=== PATIENT | male | born 1960 | race Caucasian/White ===

== ENCOUNTER → 2017-06-07 | Outpatient (CLI) | payer OTHER, BC ==
[2017-06-07 11:19] LABS: MEAN CORPUSCULAR HEMOGLOBIN 33.3 pg (27.0-33.0); MEAN CORPUSCULAR HGB CONC 35.1 g/dl (32.0-36.5); MEAN CORPUSCULAR VOLUME 94.8 fl (80.0-96.0); PLATELET COUNT, AUTOMATED 192 10^3/uL (150-450); RED CELL DISTRIBUTION WIDTH 12.7 % (11.5-14.5); WHITE BLOOD COUNT 8.3 10^3/uL (4.0-10.0)
[2017-06-07 11:28] LABS: INR 1.04
[2017-06-07 11:53] LABS: ALBUMIN 3.9 GM/DL (3.2-5.2); ALBUMIN/GLOBULIN RATIO 1.03 (1.00-1.93); ALKALINE PHOSPHATASE 82 U/L (45-117); ALT/SGPT 56 U/L (12-78); ANION GAP 9 MEQ/L (8-16); AST/SGOT 48 U/L (7-37); BILIRUBIN,TOTAL 0.7 MG/DL (0.2-1.0); BLOOD UREA NITROGEN 15 MG/DL (7-18); CALCIUM LEVEL 9.3 MG/DL (8.5-10.1); CARBON DIOXIDE LEVEL 27 MEQ/L (21-32); CHLORIDE LEVEL 95 MEQ/L (98-107); CREATININE FOR GFR 0.89 MG/DL (0.70-1.30); GLOMERULAR FILTRATION RATE > 60.0 (>56); GLUCOSE, FASTING 89 MG/DL (70-105); POTASSIUM SERUM 4.2 MEQ/L (3.5-5.1); SODIUM LEVEL 131 MEQ/L (136-145); TOTAL PROTEIN 7.7 GM/DL (6.4-8.2)
[2017-06-07 12:03] LABS: ERYTHROCYTE SEDIMENTATION RATE 8 mm/hr (0-20)
== END ==
LOC: M ADMPAT 08:51
DX: M16.11 Unilateral primary osteoarthritis, right hip (principal)

== ENCOUNTER → 2020-03-12 | Outpatient (CLI) | payer BC, OTHER ==
[~2020-03-12] MED LIST: ALLO100T PO; COUM2.5T17 PO; MELO15TA28 PO; METH1TAB40 PO; OLME1TAB47 PO; PERC5TAB12 PO; TRAM50TA2 PO; VERA240T3 PO
--- NOTE | 2020-03-12 13:41 | REPVR ---
PROCEDURE INFORMATION: Exam: MR Lumbar Spine Without Contrast. Exam date and time: 03/12/2020 12:40 PM Age: 60 years old Clinical indication: Low back pain; Additional info: Lumbar disc displacement ? stenosis TECHNIQUE: Imaging protocol: Multiplanar magnetic resonance images of the lumbar spine without intravenous contrast. COMPARISON: No relevant prior studies available. FINDINGS: Vertebrae: There is accentuation of the distal lumbar lordosis. There is a moderate L1 compression deformity with a superimposed 2 Schmorl's node, chronic. Normal vertebral body heights are otherwise preserved. Spinal cord: Normal signal. No cord compression. L1-L2: There is shallow disc bulging. There is mild facet hypertrophy. The spinal canal and neural foramina are patent. L2-L3: There is shallow disc bulging. There is mild facet hypertrophy. There is mild right neural foraminal narrowing. L3-L4: There is diffuse disc bulging/uncovering related to listhesis. There is moderate facet and ligamentous hypertrophy. There is mild canal stenosis. There is [id number] right and moderate left neural foraminal narrowing. L4-L5: There is diffuse disc bulging. There is moderate facet and ligamentous hypertrophy. There is mild canal stenosis. There is [id number] right and moderate left neural foraminal narrowing. L5-S1: There is diffuse disc bulging. There is moderate facet hypertrophy. There is moderate right and moderate to severe left neural foraminal narrowing. Soft tissues: Unremarkable. IMPRESSION: Degenerative disc disease and spondylosis as described, with multilevel neural foraminal narrowing, most pronounced at L5/S1, where it is moderate to severe on the left. Electronically signed by: Odalis Ferguson On 03/12/2020 13:41:18 PM
== END ==
LOC: M RAD 12:33
PROVIDERS: ATTEND Physician Assistant
DX: M51.26 Other intervertebral disc displacement, lumbar region (principal); M47.816 Spondylosis without myelopathy or radiculopathy, lumbar region

== ENCOUNTER → 2020-04-18 | Outpatient (CLI) | payer BC, OTHER | LOC: M LABSMTC 09:23 | PROVIDERS: ATTEND Physical Medicine & Rehabilitation | DX: Z01.812 Encounter for preprocedural laboratory examination (principal); Z20.828 Contact with and (suspected) exposure to other viral communicable diseases ==

== ENCOUNTER → 2020-04-18 | Outpatient (CLI) | payer BC, OTHER ==
[2020-04-18 09:31] LABS: PLATELET COUNT, AUTOMATED 103 10^3/uL (150-450)
[2020-04-18 09:42] LABS: INR 1.22; PROTHROMBIN TIME 15.7 SECONDS (12.5-14.3)
[2020-04-18 09:43] LABS: PARTIAL THROMBOPLASTIN TIME 36.1 SECONDS (24.2-38.5)
[2020-04-18 10:04] LABS: COLLAGEN EPINEPHRINE 107 SECONDS (74-162)
== END ==
LOC: M LAB 08:59
PROVIDERS: ATTEND Physical Medicine & Rehabilitation
DX: M47.22 Other spondylosis with radiculopathy, cervical region (principal)

== ENCOUNTER → 2020-07-07 | Outpatient (CLI) | payer BC, OTHER ==
[~2020-07-07] MED LIST changes: -OLME1TAB47 PO; +OLME1TAB53 PO
--- NOTE | 2020-07-07 13:56 | REP ---
INDICATION: SPONDYLOSIS LUMBAR REGION ? METS. COMPARISON: None. TECHNIQUE/RADIOTRACER AND DOSE: 22.0 mCi of Technetium-99m MDP was injected and standard whole-body bone scanning is acquired. FINDINGS: There is a normal distribution of skeletal tracer with uptake in bilateral kidneys and in the urinary bladder. There is no evidence to suggest skeletal metastatic disease. There is arthritic uptake in the medial compartment the left knee and in the midfoot articulations of the right foot. Degenerative uptake is seen at the lumbosacral junction and in the lower thoracic spine. There are linearly opposed areas of increased uptake in the left anterior rib cage consistent with healing fractures. IMPRESSION: No evidence to suggest skeletal metastatic disease. Degenerative and and arthritic uptake pattern. Healing left-sided rib fractures. Otherwise negative.. <Electronically signed by Ty Short > 07/07/20 [id number]
== END ==
LOC: M RAD 10:04
PROVIDERS: ATTEND Physician Assistant
DX: M47.896 Other spondylosis, lumbar region (principal)
CPT/HCPCS: 78306; A9503